=== PATIENT | female | born 2000 | race Caucasian/White ===

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

== ENCOUNTER 2018-11-08 16:10 | Emergency (ER) | payer BC, OTHER ==
--- NOTE | 2018-11-08 16:24 | UC ---
Knee Pain HPI - HPI Summary HPI Summary: 18 yo female presents with b/l knee pain. She tells me that over the last 2 years she has been dealing with b/l knee pain, swelling, and bruising. She has seen her PCP at home for this and did physical therapy with good relief. She is an avid horseback rider and this summer did a lot of horseback riding and notes that her pain increased. She is now local for college and called a local Orthopedic doctor and has an appointment in 4 days. She has been using b/l knee sleeve braces with mild improvement of her discomfort and taking ibuprofen. She is here today requesting lyme disease testing as [place] and has been bitten by multiple ticks in the past - denies bull's eye rash. When asked if she thinks her pain is due to horseback riding, she says "no". Denies fever, fatigue, other joint pains, specific injury, numbness, tingling. She has had XRs in the past, which were normal per pt. - History of Current Complaint Stated Complaint: BILATERAL KNEE PAIN Time Seen by Provider: 11/08/18 16:24 Hx Obtained From: Patient Onset/Duration: Gradual Onset Severity Initially: Moderate Severity Currently: Moderate Pain Intensity: 5 Pain Scale Used: 0-10 Numeric - Allergies/Home Medications Allergies/Adverse Reactions: Allergies Allergy/AdvReac Type Severity Reaction Status Date / Time No Known Allergies Allergy Verified 11/08/18 16:33 Home Medications: Home Medications Fluticasone NASAL SPRAY 50MCG* [Flonase NASAL SPRAY 50MCG*] 2 spray BOTH NARES DAILY 11/08/18 [History Confirmed 11/08/18] Loratadine 10 mg PO DAILY 11/08/18 [History Confirmed 11/08/18] PMH/Surg Hx/FS Hx/Imm Hx - Additional Past Medical History Additional PMH: None - Surgical History Surgical History: None - Family History Known Family History: Positive: Unknown - Social History Occupation: Student Lives: Dormitory/Roommates Alcohol Use: Occasionally Substance Use Type: None Smoking Status (MU): Never Smoked Tobacco Review of Systems All Other Systems Reviewed And Are Negative: No Constitutional: Positive: Negative Skin: Positive: Negative Respiratory: Positive: Negative Cardiovascular: Positive: Negative Neurovascular: Positive: Negative Musculoskeletal: Positive: Other: - Knee pain Neurological: Positive: Negative Psychological: Positive: Negative Physical Exam - Summary Physical Exam Summary: GENERAL: NAD. WDWN. No pain distress. SKIN: No rashes, sores, lesions, or open wounds. CHEST: No accessory muscle use. Breathing comfortably and in no distress. CV: Pulses intact popliteal, PT, and DP. Cap refill <2seconds MSK: B/L KNEES: FROM. NTTP. Strength 5/5. No edema or obvious bony deformities. No ecchymosis. No patella apprehension. Negative Jessenia, A/P drawer, Evelio, and varus/valgus stress. NEURO: Alert. Sensations intact and symmetric B/L LEs PSYCH: Age appropriate behavior. Triage Information Reviewed: Yes Vital Signs: Vital Signs: Temp Pulse Resp BP Pulse Ox 98.7 F 80 16 117/72 99 11/08/18 16:29 11/08/18 16:29 11/08/18 16:29 11/08/18 16:29 11/08/18 16:29 Vital Signs Reviewed: Yes Knee Pain Course/Dx - Course Course Of Treatment: Suspect overuse injury/pain from horseback riding or patella femoral pain syndrome. Will rx for naproxen. Draw for lyme today and treat as appropriate based on results as I have a low suspicion for lyme at this time. Advised to keep her appointment with Ortho for later this week for further eval - Differential Dx/Diagnosis Provider Diagnosis: Bilateral knee pain Discharge ED - Sign-Out/Discharge Documenting (check all that apply): Patient Departure All imaging exams completed and their final reports reviewed: No Studies - Discharge Plan Condition: Stable Disposition: HOME Prescriptions: Naproxen [Naproxen 500 mg tab] 500 mg PO BID PRN #30 tablet PRN Reason: Pain - Moderate Patient Education Materials: Lyme Disease (ED), Patellofemoral Pain Syndrome ( ED) Referrals: [facility] - Ovi BRASWELL [Primary Care Provider] - Additional Instructions: If you develop a fever, shortness of breath, chest pain, new or worsening symptoms - please call your PCP or go to the ED immediately. Please keep your appointment with Orthopedics for for further evaluation of your knee pain - Billing Disposition and Condition Condition: STABLE Disposition: Home
[2018-11-08 16:33] VITALS: BP 117/72
--- NOTE | 2018-11-11 07:11 | UC ---
- Progress Note Progress Note: Please advise that Lyme screen was negative. Course/Dx - Diagnoses Provider Diagnoses: Bilateral knee pain Discharge ED - Sign-Out/Discharge Documenting (check all that apply): Patient Departure All imaging exams completed and their final reports reviewed: No Studies - Discharge Plan Condition: Stable Disposition: HOME Prescriptions: Naproxen [Naproxen 500 mg tab] 500 mg PO BID PRN #30 tablet PRN Reason: Pain - Moderate Patient Education Materials: Lyme Disease (ED), Patellofemoral Pain Syndrome ( ED) Referrals: [facility] - Ovi BRASWELL [Primary Care Provider] - Additional Instructions: If you develop a fever, shortness of breath, chest pain, new or worsening symptoms - please call your PCP or go to the ED immediately. Please keep your appointment with Orthopedics for for further evaluation of your knee pain - Billing Disposition and Condition Condition: STABLE Disposition: Home
== END 2018-11-08 16:56 | disposition home or self-care (01) ==
LOC: UCEAST 16:10
DX: M25.562 Pain in left knee (principal); M25.561 Pain in right knee
CPT/HCPCS: 36415; 86618; 99212; G0463